=== PATIENT | male | born 1935 | race Caucasian/White ===

== ENCOUNTER 2020-12-12 09:24 | Inpatient (IN) | payer MEDICARE ==
[2020-12-12] MEDS ORDERED: HEPARIN SODIUM,PORCINE 5,000 UNIT/ML 1 ML VIAL IV STA (09:26)
[2020-12-12] MEDS ORDERED: ATORVASTATIN 80 MG TAB PO STA (09:28)
[2020-12-12] MEDS ORDERED: SODIUM CHLORIDE 0.9% 1,000 ML IV ONE (09:35)
[2020-12-12 09:49] LABS: Basophils # (A) 0.1 k/uL (0-0.2); Basophils % (A) 1 %; Eosinophils # (A) 0.2 k/uL (0-0.7); Eosinophils % (A) 3 %; HCT 32.7 % (39.0-53.0); HGB 11.1 gm/dL (13.0-17.5); Lymphocytes # (A) 1.1 k/uL (1.0-4.8); Lymphocytes % (A) 15 %; MCHC 33.9 g/dL (31.0-37.0); MCV 97.4 fL (80.0-100.0); Mean Platelet Volume 8.7; Monocytes # (A) 0.4 k/uL (0-1.0); Monocytes % (A) 6 %; Neutrophils # (A) 5.4 k/uL (1.3-7.7); Neutrophils % (A) 75 %; Platelet Count 137 k/uL (150-450); RBC 3.35 m/uL (4.30-5.90); RDW 12.9 % (11.5-15.5); WBC 7.3 k/uL (3.8-10.6)
[2020-12-12] MEDS ORDERED: fentaNYL (PF) 50 MCG/ML 2 ML AMP IV ONE (09:50)
[2020-12-12] MEDS: fentaNYL (PF) 50 MCG/ML 2 ML AMP IV ONE ×2 (09:50→10:58)
[2020-12-12] MEDS: MIDAZOLAM 2 MG/2 ML VIAL IV ONE ×2 (09:50→11:08)
[2020-12-12] MEDS ORDERED: LIDOCAINE 1% INJ 10MG/ML (20 ML MDV) SQ ONE (09:50)
[2020-12-12] MEDS ORDERED: IV FLUID CONTINUATION 1,000 ML IV ONE (09:50)
[2020-12-12] MEDS ORDERED: SODIUM CHLORIDE 0.9% 500 ML 500 ML IV ONE ×2 (09:50→10:00)
--- NOTE | 2020-12-12 09:51 | P.CRDCN ---
History of Present Illness History of present illness: HISTORY OF PRESENTING ILLNESS This is a pleasant 85-year-old male past medical history significant for coronary artery disease with history of STEMI 2009 status post angioplasty of the chronic totally occluded RCA, hypertension and dyslipidemia. He has not followed in the office with Dr. Mcneil since 2014. We have been asked to see in consultation for chest pain. He woke up this morning and he felt mildly dizzy and lightheaded. He then felt an odd discomfort in his throat. He called his son who lives in [place] who advised him to call EMS. EMS was notified and upon arrival and EKG was obtained revealing ST elevation inferior apical lateral leads. He was transported to the hospital. On arrival he was continuing to have discomfort in his throat. He had no further dizziness. He denies ever having had symptoms of chest pain, shortness of breath or palpitations. In the emergency department he is complaining of feeling mildly nauseated. He has no active vomiting. Home medications include Cardura 4 mg daily, simvastatin 40 mg daily and lisinopril 5 mg daily. At home he did take sublingual nitroglycerin however his prescription was over 10 years old. Old cath report reviewed in the system. Echocardiogram at that time revealed ejection fraction of 40-45% with hypokinesia of the inferior wall. REVIEW OF SYSTEMS At the time of my exam: CONSTITUTIONAL: Denies fever or chills. CARDIOVASCULAR: Complains of throat pain. Denies chest pain, shortness of br eath, orthopnea, PND or palpitations. RESPIRATORY: Denies cough. GASTROINTESTINAL: Planes of nausea. Denies abdominal pain, diarrhea, constipation or vomiting. MUSCULOSKELETAL: Denies myalgias. NEUROLOGIC: Denies numbness, tingling, headacbe or weakness. ENDOCRINE: Denies fatigue, weight change, polydipsia or polyurina. GENITOURINARY: Denies burning, hematuria or urgency with micturation. HEMATOLOGIC: Denies history of anemia or bleeding. PHYSICAL EXAMINATION Blood pressure 137/83 heart rate 69 afebrile and maintaining oxygen saturation on nasal cannula. CONSTITUTIONAL: No apparent distress. HEENT: Head is normocephalic. Pupils are equal, round. Sclerae anicteric. Mucous membranes of the mouth are moist. No JVD. No carotid bruit. CHEST EXAMINATION: Lungs are clear to auscultation. No chest wall tenderness is noted on palpation or with deep breathing. HEART EXAMINATION: Regular rate and rhythm. S1, S2 heard. No murmurs, gallops or rub. ABDOMEN: Soft, nontender. Positive bowel sounds. EXTREMITIES: 2+ peripheral pulses, no lower extremity edema and no calf tenderness. NEUROLOGIC EXAMINATION: Patient is awake, alert and oriented x3. ASSESSMENT Inferior and apical lateral wall STEMI History of prior DC with PCI to the RCA 2008 Hypertension Dyslipidemia PLAN Pt taken directly to the pathology lab technician. He received aspirin per EMS. Atorvastatin and heparin bolus were given in ED. Echocardiogram to be obtained after his catheterization. I have discussed the risks, benefits and alternative therapies for the above- mentioned procedure and for both sedation/analgesia as well as necessary blood product administration, if indicated, as they pertain to this patient. The patient has indicated understanding and acceptance of the risks and procedures discussed. Questions have been answered appropriately and he is agreeable to move forward with the above stated procedure. Further recommendations to follow based on clinical course. Thank you kindly for this consultation. Nurse Practitioner note has been reviewed, I agree with a documented findings and plan of care. Patient was seen and examined. Past Medical History Past Medical History: Hypertension, Myocardial Infarction ([place]) History of Any Multi-Drug Resistant Organisms: None Reported Past Surgical History: Heart Catheterization With Stent, Hernia Repair Past Psychological History: No Psychological Hx Reported Smoking Status: Former smoker Past Alcohol Use History: Occasional Past Drug Use History: None Reported Medications and Allergies Home Medications Medication Instructions Recorded Confirmed Type Doxazosin [Cardura] 4 mg PO DAILY 10/22/15 12/31/15 History Nitroglycerin Sl Tabs [Nitrostat] 0 mg SUBLINGUAL DIRECTED PRN 10/22/15 12/31/15 History Simvastatin [Zocor] 40 mg PO HS 10/22/15 12/31/15 History lisinopriL [Zestril] 5 mg PO DAILY 10/22/15 12/31/15 History Allergies Allergy/AdvReac Type Severity Reaction Status Date / Time hydrocodone Allergy Nausea & Verified 12/31/15 11:33 Vomiting Physical Exam Vitals: Vital Signs Temp Pulse Resp BP Pulse Ox 12/12/20 09:25 97.6 F 68 16 83/67 100 Intake and Output 12/11/20 12/12/20 12/12/20 22:59 06:59 14:59 Other: Weight 81.647 kg Results Intake and Output 12/11/20 12/12/20 12/12/20 22:59 06:59 14:59 Other: Weight 81.647 kg Patient Weight 12/13/20 06:59 Weight 81.647 kg
--- NOTE | 2020-12-12 09:51 | ED ---
Chest Pain HPI - General Stated Complaint: Poss STEMI Time Seen by Provider: 12/12/20 09:24 Source: patient, EMS, RN notes reviewed, old records reviewed Mode of arrival: EMS Limitations: no limitations - History of Present Illness Initial Comments: Is a 85-year-old male with a prior history of [place]) ventricular with stent placement 2 approximately 10 years ago who states that after eating breakfast this morning he got up from where he wasn't felt dizzy. He does have some severe burning in his throat. No overt chest pain no other symptoms reported he did take nitroglycerin but apparently was a very old prescription per paramedics. Patient did take a baby aspirin this morning was augmented with 3 additional was after EMS arrived. EKG was done at the patient's home and that she'll evidence of ST elevation myocardial infarction elevations in leads II, III, and F aVF. Patient was transported here priority one. Upon arrival he complained only of the burning in his throat dizziness and improved. No shortness of breath. He STEMI alert was called prior to the patient arriving to the hospital. MD Complaint: other - Related Data Home Medications Medication Instructions Recorded Confirmed Doxazosin [Cardura] 4 mg PO DAILY 10/22/15 12/12/20 Enalapril [Vasotec] 10 mg PO BID 12/12/20 12/12/20 Levocetirizine Dihydrochloride 5 mg PO DAILY 12/12/20 12/12/20 Allergies Allergy/AdvReac Type Severity Reaction Status Date / Time hydrocodone AdvReac Nausea & Verified 12/12/20 09:59 Vomiting Review of Systems ROS Statement: Those systems with pertinent positive or pertinent negative responses have been documented in the HPI. ROS Other: All systems not noted in ROS Statement are negative. EKG Findings - EKG Results: EKG: interpreted by PATRICIA (EKG done at the time of arrival: Heart rate of 70 MS interval 260 QRS 70 QT since QTC 370/399 evidence of first-degree AV block sinus rhythm in nature low-voltage ST elevation seen in leads 2, 3 aVF with reciprocal aVL changes also some depression noted in the V1 and V2 leads.) Past Medical History Past Medical History: Hypertension, Myocardial Infarction ([place]) History of Any Multi-Drug Resistant Organisms: None Reported Past Surgical History: Heart Catheterization With Stent, Hernia Repair Past Psychological History: No Psychological Hx Reported Smoking Status: Former smoker Past Alcohol Use History: Occasional Past Drug Use History: None Reported General Exam - General Exam Comments Initial Comments: This is a well-developed well-nourished awake alert oriented times 3 male Limitations: no limitations General appearance: anxious, in distress Head exam: Present: atraumatic, normocephalic, normal inspection Eye exam: Present: normal appearance, PERRL, EOMI. Absent: scleral icterus, conjunctival injection, periorbital swelling ENT exam: Present: normal exam, mucous membranes moist Neck exam: Present: normal inspection, full ROM, other (No stridor JVD or bruits ). Absent: tenderness, meningismus, lymphadenopathy Respiratory exam: Present: normal lung sounds bilaterally. Absent: respiratory distress, wheezes, rales, rhonchi, stridor Cardiovascular Exam: Present: regular rate, normal rhythm, normal heart sounds. Absent: systolic murmur, diastolic murmur, rubs, gallop, clicks GI/Abdominal exam: Present: soft, normal bowel sounds. Absent: distended, tenderness, guarding, rebound, rigid, bruit, pulsatile mass Extremities exam: Present: normal inspection, full ROM, normal capillary refill. Absent: tenderness, pedal edema, joint swelling, calf tenderness Back exam: Present: normal inspection Neurological exam: Present: alert, oriented X3, CN II-XII intact Psychiatric exam: Present: normal affect, normal mood Skin exam: Present: warm, dry, intact, normal color. Absent: rash Course Vital Signs 12/12/20 12/12/20 09:25 09:37 Temperature 97.6 F Pulse Rate 68 69 Respiratory 16 15 Rate Blood Pressure 83/67 137/83 O2 Sat by Pulse 100 96 Oximetry - Reevaluation(s) Reevaluation #1: 12/12/20 09:50 Patient was noted be hypotensive he did receive a IV fluid bolus he was heparinized given Lipitor. Dr. LEIGHANN Mcneil did come the emergency department see the patient upon arrival. Patient was ultimately taken to the [facility]. Reevaluation #2: 12/12/20 09:52 Of note the EKG done in the facility does correlate with that transmitted by EMS. Patient is still complaining of burning throat pain. No overt chest pain Reevaluation #3: 12/12/20 10:03 I did discuss the case with Mayda Cornejo who is covering for Dr. Jane Critical Care Time Critical Care Time: Yes Total Critical Care Time: 31 Critical Care Time: Code care time including initial presentation with history physical labs and x- ray orders. Discussion with the paramedics brought the patient as well as review of the transmitted EKG. Discussed with Dr. LEIGHANN Mcneil who did come the emergency department see the patient. Also reevaluation the patient. Also discussion with the admitting physician. Documentation of the above Disposition Clinical Impression: ST elevation myocardial infarction (STEMI) Disposition: ADMITTED IP TO THIS HOSP Condition: Serious Referrals: Gerardo Aguilar MD [Primary Care Provider] - 1-2 days
[2020-12-12] MEDS: HEPARIN SODIUM 1,000 UN/ML (10ML VL) IV ONE ×2 (10:00→10:11)
[2020-12-12 10:01] LABS: ALT 9 U/L (4-49); AST 15 U/L (17-59); African American GFR (CKD) >90 (>60 ml/min/1.73 sqM); Albumin 2.1 g/dL (3.5-5.0); Alkaline Phosphatase 46 U/L (38-126); Anion Gap 3 mmol/L; Blood Urea Nitrogen 17 mg/dL (9-20); Carbon Dioxide 17 mmol/L (22-30); Chloride 121 mmol/L (98-107); Creatine Kinase 53 U/L (55-170); Glucose 134 mg/dL (74-99); Lipase 69 U/L (23-300); Magnesium 1.3 mg/dL (1.6-2.3); Non-African American GFR(CKD) 84 (>60 ml/min/1.73 sqM); Sodium 141 mmol/L (137-145); Total Bilirubin 0.7 mg/dL (0.2-1.3)
[2020-12-12] MEDS ORDERED: TIROFIBAN BOLUS 12.5MG/250 ML BAG IV ONE (10:05)
[2020-12-12] MEDS ORDERED: TIROFIBAN 12.5MG-250ML NS 250 ML IV ONE (10:09)
--- NOTE | 2020-12-12 10:14 | XR ---
EXAMINATION TYPE: XR chest 1V portable DATE OF EXAM: 12/12/2020 Comparison: 09/18/2013 Clinical History: 85-year-old male with chest pain Findings: Heart is mildly enlarged. Low lung volumes with crowded vascular markings. Mild interstitial prominen ce. No jesi consolidation or pleural effusion. End-stage degenerative change at both shoulders. Impression: Hypoventilatory changes. Interstitial prominence has a chronic appearance. Borderline cardiomegaly. E nd-stage OA both humeral joints.
[2020-12-12 10:16] LABS: INR 1.1 (<1.2); Prothrombin Time 11.7 sec (9.0-12.0)
[2020-12-12 10:19] LABS: Calcium 6.1 mg/dL (8.4-10.2); Potassium 2.7 mmol/L (3.5-5.1)
[2020-12-12] MEDS ORDERED: DOPamine DRIP 800 MG in DEXTROSE/WATER 1 250ML.BAG IV ONE (10:20)
[2020-12-12] MEDS: POTASSIUM CHLORIDE 20 MEQ in WATER FOR INJECTION 1 100ML.BAG IVPB STA ×2 (10:35→13:54)
[2020-12-12] MEDS ORDERED: IOPAMIDOL-370 100ML BTL INJ ONE ×3 (10:36→12:36)
[2020-12-12 10:43] LABS: D-Dimer 3.46 mg/L FEU (<0.60); Partial Thromboplastin Time 20.5 sec (22.0-30.0)
[2020-12-12] MEDS ORDERED: AMIODARONE 50 MG/ML 3 ML VIAL IV ONE (10:45)
[2020-12-12] MEDS ORDERED: NOREPINEPHRINE 4 MG in SODIUM CHLORIDE 0.9% 250 ML IV ONE (10:48)
[2020-12-12] MEDS: MORPHINE SULFATE 4 MG/ML SYRINGE IV ONE ×2 (10:48→10:51)
[2020-12-12] MEDS ORDERED: HYDROmorphone 0.5 MG/0.5 ML SYRINGE IVP ONE ×2 (10:54→11:21)
[2020-12-12] MEDS ORDERED: CLOPIDOGREL 75 MG TAB PO ONE (12:45)
[2020-12-12] MEDS ORDERED: ATROPINE SULFATE 0.1 MG/ML 10ML SYRINGE IV PRN (13:00)
[2020-12-12] MEDS ORDERED: ZOLPIDEM 5 MG TAB PO PRN (13:00)
[2020-12-12] MEDS ORDERED: RX INFO: IV CONTRAST WAS GIVEN 1 EACH MISC MISCELLANE PRN (13:00)
[2020-12-12] MEDS ORDERED: MAG HYDROX/AL HYDROX/SIMETH 30 ML CUP PO PRN (13:00)
[2020-12-12] MEDS ORDERED: NITROGLYCERIN SL TABS 0.4 MG TAB SUBLINGUAL PRN (13:00)
[2020-12-12] MEDS ORDERED: POTASSIUM CHLORIDE 20 MEQ in WATER FOR INJECTION 1 100ML.BAG IVPB STA (13:22)
[2020-12-12 13:27] LABS: Glucose,Whole Blood 96 mg/dL (75-99)
[2020-12-12] MEDS ORDERED: Magnesium Replacement Protocol 1 EACH MISC MISCELLANE PRN (13:56)
[2020-12-12] MEDS: SODIUM CHLORIDE 0.9% 1,000 ML IV SCH (14:17)
[2020-12-12] MEDS: POTASSIUM CHLORIDE 10 MEQ in WATER FOR INJECTION 1 100ML.BAG IVPB SCH ×2 (14:17→15:16)
[2020-12-12] MEDS ORDERED: POTASSIUM CHLORIDE ER 20 MEQ TAB.ER PO STA (14:20)
[2020-12-12] MEDS: MAGNESIUM SULFATE-D5W PMX 1 GM in DEXTROSE/WATER 1 100ML.BAG IVPB SCH ×3 (14:22→16:35)
[2020-12-12] MEDS ORDERED: ONDANSETRON 4 MG/2 ML VIAL IVP PRN (14:55)
[2020-12-12] MEDS ORDERED: ONDANSETRON 4 MG/2 ML VIAL ONE (14:56)
--- NOTE | 2020-12-12 15:00 | CC ---
CARDIAC CATHETERIZATION REPORT CARDIAC CATHETERIZATION AND PTCA AND STENTING: PROCEDURE PERFORMED: 1. Left heart catheterization and coronary angiography. 2. Heart pump Impella placement from right femoral arterial approach under fluoroscopic guidance. 3. PTCA and stenting of a totally occluded proximal RCA in the setting of an acute inferior ST-elevation NJ with 2 drug-eluting stents. 4. PTCA and stenting of the ramus intermedius. 5. PTCA and stenting of proximal circumflex with a drug-eluting stent. PERFORMED BY: Dr. Casey Mcneil. SEDATION: Moderate conscious sedation time was 182 minutes. Patient was administered Versed, fentanyl, morphine. Oxygen saturation, hemodynamics and EKG were monitored closely. CLINICAL INFORMATION: Mr. Houston Burt is an 85-year-old gentleman who used to see me until about 5 years ago. In 2008, he suffered from an acute inferior NJ, underwent stenting of RCA very difficult lesion with heavy calcification. He has done fairly well. He presented today through the EMS from [place] with complaints of having had near syncopal spell today and chest pressure. He had inferior ST elevation. There was ST elevation in 2, 3, AVF, V4, V5 and V6. His presentation was that of an acute inferior ST- elevation NJ with some hypotension. I took him straight to the cardiac catheterization lab after evaluating in the ER. There was no family available, but we left a message for his daughter in-law Shira. I explained to the patient that I will perform cardiac cath and possible PCI given his presentation with acute inferior NJ. All risks, benefits, options were explained to the patient. PROCEDURE NOTE: Under local anesthesia and strict aseptic precautions, a 6-Stateless introducer was placed in the right femoral artery. I started off with a standard right Liset type guide catheter, and then I noted that the RCA was totally occluded. I tried to advance a run- through wire but I had difficulty. I switched over to KRH catheter but that was also not successful. Then I switched over to an Amplatz 1. With this, I had a better guide support. A run-through wire was used to cross the lesion. I used a 3.0 NC Trek balloon and I gave multiple inflations. The vessel opened up. Patient seemed to improve hemodynamically. There were also collaterals going to the LAD noted. I then deployed a 3.25 caliber 12 mm Xience stent in the proximal RCA at the site of total occlusion at the site of total occlusion. I noted that there was a distal 99% lesion and I could not come down with the stent. I therefore went back with a 2.5 balloon and dilated this. After pre dilating it, I was able to deploy a 3.25 caliber 12 mm stent in the distal RCA with excellent angiographic result. I then noted that the patient became hypotensive and there were collaterals going to the left system. I took a picture of the left system and noted that the LAD was subtotally occluded with a chronic occlusion calcification and the ramus/first diagonal also had a 90% lesion and there was also a 60% lesion in the circumflex ostium. Left main was a very small vessel. The patient continued to be hypotensive, requiring dopamine and Levophed. At this point, I decided to place an Impella and work on the left system. I explained this to the patient and proceeded to place Impella under fluoroscopic guidance, using the standard procedure of advancing from 6-Stateless to 8-Stateless sheath and 10- Stateless dilator and eventually a 14-Stateless sheath was placed. Impella was placed in the left ventricle using a pigtail catheter. A good cardiac output of 3.5 L was noted. Using a single access system, I gained access through the sheath of the 14-Stateless at 10 o'clock position and a 6-Stateless introducer was placed. I used a 3.5 left Liset type guide catheter to cannulate the left coronary artery. I could not cross the total occlusion in the LAD. In the process, I raised the plaque and LAD appears to be totally occluded, but patient remained more stable hemodynamically. I advanced the wire into the ramus/diagonal and dilated this and deployed a 3.0 caliber, 12 mm stent in the diagonal with a fair result. I noted that the circumflex was also further compromised. There was a 60 to 70% lesion and now it looks more like 80 to 90% lesion. I dilated the circumflex with a 2.0 NC trek and then 3.5 NC trek and eventually used a 12 mm long 3.5 stent in the ostium of the circumflex. Excellent angiographic result was achieved. Unfortunately, the flow in the LAD was not seen antegrade and this was a chronic subtotal occlusion. However, the LAD seemed to be filling by collaterals from left-to- left as well as from [id number]. The patient was hemodynamically stable. Under fluoroscopic guidance, the Impella was taken out and I also pre closed with 2 Perclose devices at 10 o'clock and 2 o'clock position. I tried to secure hemostasis, but unfortunately the calcification was significant and I lost the Perclose sutures and therefore I have switched over and deployed an 8-Stateless Angio-Seal and following the Angio-Seal excellent hemostasis was secured. We applied manual compression and Femstop was applied. Excellent hemostasis was achieved. The patient was sent to the room in a stable condition. The patient received heparin intravenously and his ACT was a varied anywhere from 247-320. He also received an Aggrastat bolus and infusion as well per protocol. Aggrastat infusion was stopped after the procedure. He received 600 mg of Plavix orally. He was sent to the ICU in a hemodynamically stable condition without any pressors. The details of the procedure and results were discussed with the patient's [id number]. Prognosis remains guarded. We will watch him closely and see how he does. MMODL / IJN: [id number] / [facility]
--- NOTE | 2020-12-12 16:39 | P.HPIM ---
History of Present Illness Patient is a pleasant 85-year-old male came in with compensative chest pain found to have ST elevation microinfarction patient was emergently taken to [facility] and patient is found to have significant stenosis of the LAD patient unde rwent stenting of totally occluded proximal LAD with 2 drug-eluting stents patient also had PTCA and stenting of ramus intermedius and stenting of part of the proximal circumflex with drug-eluting stent heart pump or impella device was used. Patient had history of coronary artery disease and acute myocardial infarction in the past. Had stents to RCA in the past. I saw the patient after cardiac catheterization and stenting Review of Systems REVIEW OF SYSTEMS: CONSTITUTIONAL: No fever, no malaise, no fatigue. HEENT: No recent visual problems or hearing problems. Denied any sore throat. CARDIOVASCULAR: No chest pain, orthopnea, PND, no palpitations, no syncope. PULMONARY: No shortness of breath, no cough, no hemoptysis. GASTROINTESTINAL: No diarrhea, no nausea, no vomiting, no abdominal pain. NEUROLOGICAL: No headaches, no weakness, no numbness. HEMATOLOGICAL: Denies any bleeding or petechiae. GENITOURINARY: Denies any burning micturition, frequency, or urgency. MUSCULOSKELETAL/RHEUMATOLOGICAL: Denies any joint pain, swelling, or any muscle pain. ENDOCRINE: Denies any polyuria or polydipsia. The rest of the 14-point review of systems is negative. Past Medical History Past Medical History: Coronary Artery Disease (CAD), Chest Pain / Angina, Eye Disorder, GERD/Reflux, Hearing Disorder / Deafness, Hyperlipidemia, Hypertension, Myocardial Infarction ([place]), Osteoarthritis (OA), Prostate Disorder Additional Past Medical History / Comment(s): enlarted prostrate, STEMI 1, Last Myocardial Infarction Date:: 12/12/2020 History of Any Multi-Drug Resistant Organisms: None Reported Past Surgical History: Heart Catheterization With Stent, Hernia Repair, Tonsillectomy Additional Past Surgical History / Comment(s): Retina detached, Past Anesthesia/Blood Transfusion Reactions: No Reported Reaction Date of Last Stent Placement:: 12/12/20 Past Psychological History: No Psychological Hx Reported Smoking Status: Former smoker Past Alcohol Use History: None Reported Past Drug Use History: None Reported - Past Family History Father Family Medical History: Chest Pain / Angina, Hypertension, Myocardial Infarction ([place]) Mother Family Medical History: Myocardial Infarction ([place]) Medications and Allergies Home Medications Medication Instructions Recorded Confirmed Type Doxazosin [Cardura] 4 mg PO DAILY 10/22/15 12/12/20 History Aspirin 1 tab PO DAILY 12/12/20 12/12/20 History Enalapril [Vasotec] 10 mg PO BID 12/12/20 12/12/20 History Levocetirizine Dihydrochloride 5 mg PO DAILY 12/12/20 12/12/20 History Allergies Allergy/AdvReac Type Severity Reaction Status Date / Time hydrocodone AdvReac Nausea & Verified 12/12/20 09:59 Vomiting Physical Exam Vitals: Vital Signs Temp Pulse Resp BP BP Pulse Ox 12/12/20 16:00 98.4 F 62 12 129/65 97 12/12/20 15:30 70 18 131/87 97 12/12/20 15:00 61 13 131/72 98 12/12/20 14:30 98.1 F 59 L 8 L 129/69 96 12/12/20 14:00 97.7 F 52 L 18 132/88 131/72 97 12/12/20 13:30 52 L 19 128/84 98 12/12/20 13:20 97.7 F 26 H 127/73 95 12/12/20 09:37 69 15 137/83 96 12/12/20 09:25 97.6 F 68 16 83/67 100 Intake and Output 12/12/20 12/12/20 12/12/20 06:59 14:59 22:59 Intake Total 1046.07 400 Output Total 60 Balance 1046.07 340 Intake: IV 1046.07 400 Magnesium Sulfate-D5w Pmx 100 100 1 gm In Dextrose/Water 1 100ml.bag @ 100 mls/hr IVPB Q1H SRAVANI Rx#: [id number] Potassium Chloride 10 meq 100 100 In Water For Injection 1 100ml.bag @ 100 mls/hr IVPB Q1H [facility]RA[facility]ANI Rx#: [id number] Sodium Chloride 0.9% 1, 100 200 000 ml @ 100 mls/hr IV . Q10H SRAVANI Rx#:[id number] Output: Emesis 60 Other: Weight 81.647 kg PHYSICAL EXAMINATION: GENERAL: The patient is alert and oriented x3, not in any acute distress. Well developed, well nourished. HEENT: Pupils are round and equally reacting to light. EOMI. No scleral icterus. No conjunctival pallor. Normocephalic, atraumatic. No pharyngeal erythema. No thyromegaly. CARDIOVASCULAR: S1 and S2 present. No murmurs, rubs, or gallops. PULMONARY: Chest is clear to auscultation, no wheezing or crackles. ABDOMEN: Soft, nontender, nondistended, normoactive bowel sounds. No palpable organomegaly. MUSCULOSKELETAL: No joint swelling or deformity. EXTREMITIES: No cyanosis, clubbing, or pedal edema. NEUROLOGICAL: Gross neurological examination did not reveal any focal deficits. SKIN: No rashes. Results CBC & Chem 7: 12/12/20 09:37 12/12/20 09:37 Labs: Abnormal Lab Results - Last 24 Hours (Table) 12/12/20 12/12/20 12/12/20 Range/Units 09:37 09:37 09:37 RBC 3.35 L (4.30-5.90) m/uL Hgb 11.1 L (13.0-17.5) gm/dL Hct 32.7 L (39.0-53.0) % Plt Count 137 L (150-450) k/uL APTT 20.5 L (22.0-30.0) sec D-Dimer 3.46 H (<0.60) mg/L FEU Potassium 2.7 L* (3.5-5.1) mmol/L Chloride 121 H (98-107) mmol/L Carbon Dioxide 17 L (22-30) mmol/L Glucose 134 H (74-99) mg/dL Calcium 6.1 L* (8.4-10.2) mg/dL Magnesium 1.3 L (1.6-2.3) mg/dL AST 15 L (17-59) U/L Creatine Kinase 53 L (55-170) U/L Total Protein 4.0 L (6.3-8.2) g/dL Albumin 2.1 L (3.5-5.0) g/dL Thrombosis Risk Factor Assmnt - Choose All That Apply Any of the Below Risk Factors Present?: Yes Each Factor Represents 1 point: Acute [place], Medical pt on bed rest Other Risk Factors: No Other congenital or acquired thrombophilia - If yes, enter type in comment: No Thrombosis Risk Factor Assessment Total Risk Factor Score: 2 Thrombosis Risk Factor Assessment Level: Low Risk Assessment and Plan Plan: Acute ST elevation myocardial infarction: Patient is status post a cardiac catheterization and stenting of LAD and circumflex as mentioned above continue with dual antiplatelet therapy statin, beta timothy. Echocardiogram is pending at this time. -Hypomagnesemia and hypokalemia: These will be replaced. -History of coronary artery disease with stents to RCA in 2008 -Hypertension -Hyperlipidemia -Benign prostatic hypertrophy -Gastroesophageal reflux disease For above-mentioned chronic medical problems patient was started on appropriate home medications
[2020-12-12] MEDS ORDERED: METOPROLOL TARTRATE 12.5 MG TAB PO SCH ×2 (18:00)
[2020-12-12 19:00] LABS: Basophils % (A) 0 %; Eosinophils # (A) 0.1 k/uL (0-0.7); Eosinophils % (A) 1 %; HCT 39.7 % (39.0-53.0); HGB 13.2 gm/dL (13.0-17.5); Lymphocytes # (A) 0.6 k/uL (1.0-4.8); Lymphocytes % (A) 5 %; MCH 33.3 pg (25.0-35.0); MCHC 33.2 g/dL (31.0-37.0); MCV 100.3 fL (80.0-100.0); Mean Platelet Volume 8.5; Monocytes # (A) 0.6 k/uL (0-1.0); Monocytes % (A) 5 %; Neutrophils % (A) 89 %; Platelet Count 166 k/uL (150-450); RBC 3.95 m/uL (4.30-5.90); RDW 12.9 % (11.5-15.5); WBC 12.3 k/uL (3.8-10.6)
[2020-12-12 19:14] LABS: Calcium 8.6 mg/dL (8.4-10.2); Potassium 4.8 mmol/L (3.5-5.1)
[2020-12-13 04:21] LABS: Basophils % (A) 0 %; Eosinophils # (A) 0.1 k/uL (0-0.7); Eosinophils % (A) 1 %; HCT 34.9 % (39.0-53.0); HGB 11.8 gm/dL (13.0-17.5); Lymphocytes # (A) 1.1 k/uL (1.0-4.8); Lymphocytes % (A) 10 %; MCH 33.4 pg (25.0-35.0); MCHC 33.7 g/dL (31.0-37.0); MCV 99.3 fL (80.0-100.0); Monocytes # (A) 0.9 k/uL (0-1.0); Monocytes % (A) 8 %; Neutrophils # (A) 8.8 k/uL (1.3-7.7); Neutrophils % (A) 79 %; Platelet Count 154 k/uL (150-450); RBC 3.52 m/uL (4.30-5.90); RDW 13.3 % (11.5-15.5); WBC 11.1 k/uL (3.8-10.6)
[2020-12-13 04:37] LABS: Calcium 8.4 mg/dL (8.4-10.2); Magnesium 2.4 mg/dL (1.6-2.3); Potassium 4.7 mmol/L (3.5-5.1)
[2020-12-13] MEDS: SODIUM CHLORIDE 0.9% 1,000 ML IV SCH (06:40)
[2020-12-13] MEDS ORDERED: FUROSEMIDE 10 MG/ML 2 ML VIAL IV ONE (07:14)
[2020-12-13] MEDS ORDERED: SODIUM CHLORIDE 0.9% 500 ML 500 ML IV SCH (07:15)
[2020-12-13] MEDS ORDERED: ACETAMINOPHEN TAB 500 MG TAB PO PRN (08:24)
[2020-12-13] MEDS ORDERED: MORPHINE SULFATE 2 MG/ML SYRINGE IVP PRN (08:25)
--- NOTE | 2020-12-13 08:30 | PN ---
PROGRESS NOTE Mr. Houston Burt is an 85-year-old gentleman who had initially an acute inferior NM and stenting in 2008. He came in yesterday with a syncope and chest pressure, had a total occlusion of the RCA that was stented in 2008. I performed stenting of this vessel and then he continued to be hypotensive. He was found to have a significant disease in the proximal LAD after the origin of a high diagonal or ramus of 99% with collaterals from the RCA. I could not open the LAD, but I opened the ramus and circumflex with the support of Impella. This morning he is doing well. No chest pain. He is slightly bradycardic. His right groin is clean and dry with a good pulse. Vitals are stable. Blood pressure is 111/70, pulse rate is about 54. S1, S2 heard normally, short systolic murmur noted. Lungs reveal bilateral fine rales. Abdomen is soft, nontender. Lower extremities reveal diminished pulses. Central nervous system grossly no focal deficits. I am recommending that we hold beta timothy for heart rate of less than 60 and use only 12.5 mg Lopressor in the morning, add losartan 12.5 mg at bedtime, Lasix 10 mg daily, IV fluids at 20 mL/hour. Obtain echocardiogram and based on clinical course we will make further recommendations. Prognosis remains guarded. Discussed my thoughts in detail with the patient. MMODL / IJN: [id number] /
--- NOTE | 2020-12-13 08:59 | P.PN ---
Subjective Progress Note Date: 12/13/20 Principal diagnosis: Chest discomfort/syncope Post cardiac catheterization with stenting of the proximal LAD Post ST elevation myocardial infarction 85-year-old male, resting comfortably in bed. Patient post cardiac catheterization for ST elevation myocardial infarctionunderwent stenting to the proximal LAD with 2 drug-eluting stents. Patient has significant medical history of coronary artery disease with stents in the past. Upon evaluation the same patient, denies chest pain, shortness of breath, nausea, abdominal pain. Patient complaint of intermittent bilateral lower extremity leg discomfort. Objective - Vital Signs Vital signs: Vital Signs Temp 97.8 F 12/13/20 04:30 Pulse 45 L 12/13/20 07:00 Resp 16 12/13/20 07:00 BP 108/54 12/13/20 07:00 Pulse Ox 96 12/13/20 07:00 Intake & Output 12/12/20 12/13/20 12/13/20 18:59 06:59 18:59 Intake Total 1746.07 1200 100 Output Total 340 725 0 Balance 1406.07 475 100 Weight 81.647 kg 77.1 kg Intake: IV 1746.07 1200 100 Magnesium Sulfate-D5w Pmx 300 1 gm In Dextrose/Water 1 100ml.bag @ 100 mls/hr IVPB Q1H SRAVANI Rx#: [id number] Potassium Chloride 10 meq 200 In Water For Injection 1 100ml.bag @ 100 mls/hr IVPB Q1H SRAVANI Rx#: [id number] Sodium Chloride 0.9% 1, 500 1200 100 000 ml @ 100 mls/hr IV . Q10H SRAVANI Rx#:[id number] Output: Urine 280 725 0 Emesis 60 Other: Voiding Method Urinal Urinal # Voids 0 0 - Constitutional General appearance: Present: cooperative - EENT Eyes: Present: EOMI, PERRLA Ears: bilateral: normal - Neck Neck: Present: normal ROM Thyroid: bilateral: normal size - Respiratory Respiratory: bilateral: CTA (Throughout lung jansen) - Cardiovascular Details: sinus rhythm pattern Heart rate: 58 Rhythm: regular Abnormal Heart Sounds: Present: systolic murmur (Slight) - Peripheral pulses radial pulse Peripheral Pulses: bilateral: Normal - Gastrointestinal General gastrointestinal: Present: normal bowel sounds - Integumentary Integumentary: Present: normal turgor - Neurologic Neurologic: Present: CNII-XII intact - Psychiatric Psychiatric: Present: A&O x's 3, appropriate affect, intact judgment & insight - Labs CBC & Chem 7: 12/13/20 03:38 12/13/20 03:38 Labs: Abnormal Lab Results - Last 24 Hours (Table) 12/12/20 12/12/20 12/12/20 Range/Units 09:37 09:37 09:37 WBC (3.8-10.6) k/uL RBC 3.35 L (4.30-5.90) m/uL Hgb 11.1 L (13.0-17.5) gm/dL Hct 32.7 L (39.0-53.0) % MCV (80.0-100.0) fL Plt Count 137 L (150-450) k/uL Neutrophils # (1.3-7.7) k/uL Lymphocytes # (1.0-4.8) k/uL APTT 20.5 L (22.0-30.0) sec D-Dimer 3.46 H (<0.60) mg/L FEU Sodium (137-145) mmol/L Potassium 2.7 L* (3.5-5.1) mmol/L Chloride 121 H (98-107) mmol/L Carbon Dioxide 17 L (22-30) mmol/L BUN (9-20) mg/dL Glucose 134 H (74-99) mg/dL Calcium 6.1 L* (8.4-10.2) mg/dL Magnesium 1.3 L (1.6-2.3) mg/dL AST 15 L (17-59) U/L Creatine Kinase 53 L (55-170) U/L Troponin I (0.000-0.034) ng/mL Total Protein 4.0 L (6.3-8.2) g/dL Albumin 2.1 L (3.5-5.0) g/dL 12/12/20 12/12/20 12/12/20 Range/Units 18:43 18:43 18:43 WBC 12.3 H (3.8-10.6) k/uL RBC 3.95 L (4.30-5.90) m/uL Hgb (13.0-17.5) gm/dL Hct (39.0-53.0) % MCV 100.3 H (80.0-100.0) fL Plt Count (150-450) k/uL Neutrophils # 11.0 H (1.3-7.7) k/uL Lymphocytes # 0.6 L (1.0-4.8) k/uL APTT (22.0-30.0) sec D-Dimer (<0.60) mg/L FEU Sodium 135 L (137-145) mmol/L Potassium (3.5-5.1) mmol/L Chloride (98-107) mmol/L Carbon Dioxide 19 L (22-30) mmol/L BUN 22 H (9-20) mg/dL Glucose 152 H (74-99) mg/dL Calcium (8.4-10.2) mg/dL Magnesium (1.6-2.3) mg/dL AST (17-59) U/L Creatine Kinase (55-170) U/L Troponin I 62.100 H* (0.000-0.034) ng/mL Total Protein (6.3-8.2) g/dL Albumin (3.5-5.0) g/dL 12/13/20 12/13/20 12/13/20 Range/Units 03:38 03:38 03:38 WBC 11.1 H (3.8-10.6) k/uL RBC 3.52 L (4.30-5.90) m/uL Hgb 11.8 L (13.0-17.5) gm/dL Hct 34.9 L (39.0-53.0) % MCV (80.0-100.0) fL Plt Count (150-450) k/uL Neutrophils # 8.8 H (1.3-7.7) k/uL Lymphocytes # (1.0-4.8) k/uL APTT (22.0-30.0) sec D-Dimer (<0.60) mg/L FEU Sodium 136 L (137-145) mmol/L Potassium (3.5-5.1) mmol/L Chloride 108 H (98-107) mmol/L Carbon Dioxide 21 L (22-30) mmol/L BUN 22 H (9-20) mg/dL Glucose 104 H (74-99) mg/dL Calcium (8.4-10.2) mg/dL Magnesium 2.4 H (1.6-2.3) mg/dL AST (17-59) U/L Creatine Kinase (55-170) U/L Troponin I 39.400 H* (0.000-0.034) ng/mL Total Protein (6.3-8.2) g/dL Albumin (3.5-5.0) g/dL - Imaging and Cardiology Chest x-ray: report reviewed Cardiac catheterization operative report reviewed Assessment and Plan Assessment: Acute ST elevation myocardial infarctionpost cardiac catheterization and stenting of the LAD and circumflex-continue cardiology treatment plan Pending echocardiogram Hypokalemiapotassium replacement protocol Hypomagnesemiamagnesium replacement protocol History of coronary artery disease with stents in 2008 Hypertension Hyperlipidemia Benign prostatic hypertrophic GERD Continue home medications Continue medical management Time with Patient: Greater than 30
[2020-12-13] MEDS ORDERED: ASPIRIN 81 MG PO SCH (09:00)
[2020-12-13] MEDS ORDERED: METOPROLOL TARTRATE 12.5 MG TAB PO SCH (09:00)
[2020-12-13] MEDS ORDERED: DOXAZOSIN 4 MG TAB PO SCH (09:00)
[2020-12-13] MEDS ORDERED: CLOPIDOGREL 75 MG TAB PO SCH (09:00)
[2020-12-13 10:32] VITALS: BMI 25.1
--- NOTE | 2020-12-13 11:58 | ECHOF ---
Referral Reason:S/P STEMI MEASUREMENTS -------- HEIGHT: 177.8 cm WEIGHT: 81.6 kg BP: 97/51 IVSd: 1.6 cm (0.6 - 1.1) LVIDd: 3.7 cm (3.9 - 5.3) LVPWd: 1.4 cm (0.6 - 1.1) IVSs: 1.8 cm LVIDs: 2.7 cm LVPWs: 2.1 cm LAESV Index (A-L): 24.64 ml/m Ao Diam: 2.9 cm (2.0 - 3.7) AV Cusp: 1.5 cm (1.5 - 2.6) MV EXCURSION: 15.488 mm (> 18.000) MV EF SLOPE: 73 mm/s (70 - 150) EPSS: 0.8 cm MV E Ashish: 0.79 m/s MV DecT: 284 ms MV A Ashish: 1.21 m/s MV E/A Ratio: 0.65 RAP: 5.00 mmHg RVSP: 19.59 mmHg FINDINGS -------- Sinus rhythm. This was a technically difficult study with suboptimal views. The left ventricular size is normal. There is moderate concentric left ventricular hypertrophy. O verall left ventricular systolic function is moderately impaired with, an EF between 35 - 40 %. Nor mal LAP Grade 1 Diastolic Dysfunction. Mid anteroseptal LV wall motion is hypokinetic. Apical an terior LV wall motion is hypokinetic. Apical lateral LV wall motion is hypokinetic. Apical infe rior LV wall motion is hypokinetic. Apical septum LV wall motion is hypokinetic. The right ventricle is normal in size. Normal LA size by volume 22+/-6 ml/m2. The right atrial size is normal. Unable to visualize the septum. There is moderate aortic valve sclerosis. Mild mitral annular calcification present. Mild mitral regurgitation is present. The tricuspid valve appears structurally normal. Mild tricuspid regurgitation present. Right vent ricular systolic pressure is normal at < 35 mmHg. The pulmonic valve was not well visualized. There is no pulmonic regurgitation present. The aortic root size is normal. Normal inferior vena cava with normal inspiratory collapse consistent with estimated right atrial pre ssure of 5 mmHg. There is no pericardial effusion. CONCLUSIONS -------- 1. This was a technically difficult study with suboptimal views. 2. There is moderate concentric left ventricular hypertrophy. 3. Overall left ventricular systolic function is moderately impaired with, an EF between 35 - 40 %. 4. Mid anteroseptal LV wall motion is hypokinetic. 5. Apical anterior LV wall motion is hypokinetic. 6. Apical lateral LV wall motion is hypokinetic. 7. Apical inferior LV wall motion is hypokinetic. 8. Apical septum LV wall motion is hypokinetic. 9. Normal LA size by volume 22+/-6 ml/m2. 10. There is moderate aortic valve sclerosis. 11. Mild mitral regurgitation is present. 12. Mild tricuspid regurgitation present. 13. There is no pericardial effusion. SR. DIRECTOR PRODUCT MANAGEMENT: Soheila Turner RDCS
[2020-12-13 20:02] VITALS: TEMP 97.9
[2020-12-13] MEDS ORDERED: LOSARTAN 25 MG TAB PO SCH (21:00)
[2020-12-13] MEDS ORDERED: ATORVASTATIN 40 MG TAB PO SCH (21:00)
[2020-12-13 23:35] VITALS: BP 121/67; PULSE 80; RESP 23
--- NOTE | 2020-12-14 19:01 | P.PN ---
Progress Note - Text Progress Note Date: 12/14/20 (0015) Contacted by intensive care nursing staffregarding patient requesting to leave AGAINST MEDICAL ADVICE. Nursing staff handed portable phone to patienthad lengthy discussion with patient regarding the risk of leaving AGAINST MEDICAL ADVICEexplained to the patient, the extent of his event of a ST elevated myocardial infarctionwith significant cardiovascular disease process and comorbidities; leaving AGAINST MEDICAL ADVICE is not advised, and he is in critical condition. Patient alert and oriented to person,place, and time and situation; patient verbally understands the risk of leaving AGAINST MEDICAL ADVICE with the current condition of critical condition is not advised. Patient adamant in regards to leaving AGAINST MEDICAL ADVICE.
== END 2020-12-14 02:56 | disposition left against medical advice (07) | DRG 215 ==
LOC: EC 09:24 → 2SICU 10:05
PROVIDERS: ADMIT Family Medicine; ATTEND Family Medicine
PROC: B2111ZZ Fluoroscopy of Multiple Coronary Arteries using Low Osmolar Contrast (ICD-10-PCS; principal; 2020-12-12 14:35)
PROC: 4A023N7 Measurement of Cardiac Sampling and Pressure, Left Heart, Percutaneous Approach (ICD-10-PCS; principal; 2020-12-12 14:35)
PROC: 027237Z Dilation of Coronary Artery, Three Arteries with Four or More Drug-eluting Intraluminal Devices, Percutaneous Approach (ICD-10-PCS; principal; 2020-12-12 14:35)
PROC: 02HA3RJ Insertion of Short-term External Heart Assist System into Heart, Intraoperative, Percutaneous Approach (ICD-10-PCS; principal; 2020-12-12 14:35)
DX: I21.19 ST elevation (STEMI) myocardial infarction involving other coronary artery of inferior wall (principal); I21.29 ST elevation (STEMI) myocardial infarction involving other sites; I25.10 Atherosclerotic heart disease of native coronary artery without angina pectoris; I95.9 Hypotension, unspecified; R00.1 Bradycardia, unspecified; E87.6 Hypokalemia; E83.42 Hypomagnesemia; I10 Essential (primary) hypertension; E78.5 Hyperlipidemia, unspecified; K21.9 Gastro-esophageal reflux disease without esophagitis; N40.0 Benign prostatic hyperplasia without lower urinary tract symptoms; Z53.29 Procedure and treatment not carried out because of patient's decision for other reasons; H91.90 Unspecified hearing loss, unspecified ear; M19.90 Unspecified osteoarthritis, unspecified site; I25.2 Old myocardial infarction; Z95.5 Presence of coronary angioplasty implant and graft; Z98.890 Other specified postprocedural states; Z87.891 Personal history of nicotine dependence; Z90.89 Acquired absence of other organs; Z79.899 Other long term (current) drug therapy; Z79.82 Long term (current) use of aspirin; Z88.5 Allergy status to narcotic agent
CPT/HCPCS: 36415; 71045; 80048; 80053; 82550; 83690; 83735; 83880; 84484; 85025; 85347; 85379; 85610; 85730; 93005; 93306; 93458; 96374; 99291

== ENCOUNTER → 2020-12-16 | Outpatient (CLI) | payer MEDICARE ==
--- NOTE | 2020-12-16 13:18 | XR ---
EXAMINATION TYPE: XR chest 2V DATE OF EXAM: 12/16/2020 COMPARISON: 12/12/20 HISTORY: Shortness of breath TECHNIQUE: Frontal and lateral views of the chest are obtained. FINDINGS: Scattered senescent parenchymal changes noted. No evidence for infiltrate. No evidence for atelectasis. Heart size is stable. Mediastinal structures are stable and grossly unremarkable. No evidence for hilar prominence. Degenerative changes dorsal spine. IMPRESSION: 1. No evidence for acute pulmonary disease.
== END | disposition home or self-care (01) ==
LOC: RADXRMAIN 12:48
PROVIDERS: ATTEND Family Medicine
DX: I50.42 Chronic combined systolic (congestive) and diastolic (congestive) heart failure (principal)
CPT/HCPCS: 71046

== ENCOUNTER → 2020-12-26 | Outpatient (CLI) | payer MEDICARE ==
[2020-12-26 21:34] LABS: African American GFR (CKD) 63.1 (60.0-200.0); Anion Gap 8.6 mmol/L (4.00-12.00); Calcium 9.2 mg/dL (8.7-10.3); Carbon Dioxide 24.4 mmol/L (21.6-31.8); Non-African American GFR(CKD) 54.4 (60.0-200.0); Potassium 4.2 mmol/L (3.5-5.5)
== END | disposition home or self-care (01) ==
LOC: LABWHC1 12:35
PROVIDERS: ATTEND Nurse Practitioner
DX: I10 Essential (primary) hypertension (principal); E78.2 Mixed hyperlipidemia; I25.10 Atherosclerotic heart disease of native coronary artery without angina pectoris
CPT/HCPCS: 36415; 80048; 83735